=== PATIENT | male | born 1965 | race Caucasian/White ===

== ENCOUNTER 2016-10-10 14:22 | Emergency (ER) | payer MEDICARE, MEDICAID ==
[~2016-10-10] VITALS: Ht 176.5 cm; Wt 134.7 kg
[~2016-10-10 14:22] MED LIST: ASP81CT PO; CHOL10003 PO; FERR325C PO; LEVO75TA57 PO; LISI1TAB6 PO; METO-354 PO; MTF500T PO; NFPRILOC40 PO; SRTR100T PO; ZPR40C PO
[2016-10-10] MEDS ORDERED: LIDOCAINE/EPI 1%-1:100,000 (XYLOCAINE) 20ML INJ ONE (14:45)
--- NOTE | 2016-10-10 15:14 | ED Lower Extremity ---
General Chief Complaint: Laceration Stated Complaint: R LEG BLEEDING Nursing Triage Note: PT REPORTS CERAMIC DECORATIONS BREAKING AND CUTTING LEG. [facility]TA STAFF STATES UNABLE TO GET IT TO STOP BLEEDING. PT DENIES PAIN. BROUGHT IN BY , BUT ABLE TO TRANSFER TO BED WITHOUT ISSUE. Nursing Sepsis Screen: No Definite Risk Source: patient Exam Limitations: no limitations (high functioning MR) History of Present Illness Time seen by provider: 15:11 Initial Comments 51-year-old male patient presents to the emergency department with complaints of a laceration to the right knee. Patient states he fell onto a ceramic [place] cutting the right leg. Denies numbness, weakness. Denies hitting his head or loss of consciousness. Staff reports unable to get the laceration to quit bleeding. Location Injury Occurred: home Onset: just prior to arrival Pain/Injury Location: right knee Method of Injury: fell, incised Modifying Factors: Worse With Other (unable to stop the bleeding with compression.) Allergies and Home Medications Allergies Coded Allergies: No Known Drug Allergies (Unverified , 09/15/10) Home Medications Aspirin 81 Mg Chew 81 MG PO DAILY (Reported) Cholecalciferol 1,000 Unit Tablet 1,000 UNIT PO (Reported) Ferrous Sulfate 325 ( 65 )Mg Capsule.sa 325 ( PO (Reported) Hctz/Lisinopril 1 Each Tablet 1 EACH PO DAILY (Reported) Levothyroxine Sodium 75 Mcg Tablet 1 EACH PO DAILY (Reported) Metformin Hcl 500 Mg Tab 1,000 MG PO BID (Reported) Metoclopramide Hcl 10 Mg Tab 1 EACH PO QID PRN (Reported) Omeprazole 40 Mg Capsule.dr 40 MG PO HS (Reported) Sertraline Hcl 100 Mg Tablet 2 TAB PO DAILY (Reported) Ziprasidone 40 Mg Cap 40 MG PO BIDPC (Reported) Constitutional: no symptoms reported Respiratory: no symptoms reported Cardiovascular: no symptoms reported Musculoskeletal: No back pain, No joint pain, No joint swelling, No neck pain Skin: see HPI other (laceration rt knee) Psychiatric/Neurological: Denies Headache, Denies Numbness, Denies Paresthesia , Denies Tingling, Denies Weakness All Other Systems Reviewed Negative Unless Noted: Yes (Negative excepted noted.) Past Ggqwlct-Ddndzh-Klutfm Hx Patient Social History Alcohol Use: Denies Use Recreational Drug Use: No Smoking Status: Never a Smoker Recent Foreign Travel: No Contact w/Someone Who Travel: No Recent Infectious Disease Expo: No Recent Hopitalizations: No Physical Abuse Screen: No Sexual Abuse: No Immunizations Up To Date Tetanus Booster (TDap): Less than 5yrs (4 yrs ago.) Surgeries HX Surgeries: Yes (LEFT ANKLE) Surgeries: Orthopedic Respiratory Hx Respiratory Disorders: No Cardiovascular Hx Cardiac Disorders: Yes Cardiac Disorders: Hypertension Neurological Hx Neurological Disorders: No Reproductive System Hx Reproductive Disorders: No Sexually Transmitted Disease: No Genitourinary Hx Genitourinary Disorders: No Gastrointestinal Hx Gastrointestinal Disorders: No Musculoskeletal Hx Musculoskeletal Disorders: Yes Musculoskeletal Disorders: Arthritis Endocrine Hx Endocrine Disorders: Yes Endocrine Disorders: Hypothyroidsim HEENT HX ENT Disorders: No Psychosocial Hx Psychiatric Problems: Yes (iMPULSE CONTROL DISORDER NOS, MR) Behavioral Health Disorders: Depression Integumentary HX Skin/Integumentary Disorder: No Blood Transfusions Hx Blood Disorders: Yes (ANEMIA) Reviewed Nursing Assessment Reviewed/Agree w Nursing PMH: Yes Family Medical History Significant Family History: No Pertinent Family Hx Physical Exam Vital Signs Vital Sign - Last 12Hours 10/10/16 14:35 Temp 98.5 Pulse 75 Resp 18 B/P 132/80 Pulse Ox 99 O2 Delivery Room Air Capillary Refill : Less Than 3 Seconds General Appearance: WD/WN no apparent distress Cardiovascular: normal peripheral pulses no edema Legs: bilateral leg non-tender, bilateral leg normal range of motion, bilateral leg no evidence of injury, bilateral leg other (venous stasis changes bilaterally.) Knees: bilateral knee non-tender, left knee normal inspection, bilateral knee normal range of motion, left knee no evidence of injury, right knee other (4 cm linear laceration of the right anterior knee with mild hemorrhage.) Ankles: bilateral ankle non-tender, bilateral ankle normal range of motion, bilateral ankle no evidence of injury, bilateral ankle other (venous stasis changes bilaterally.) Feet: bilateral foot non-tender, bilateral foot normal range of motion, bilateral foot no evidence of injury, bilateral foot other (venous stasis changes of the BLE) Neurologic/Tendon: normal sensation normal motor functions normal tendon functions responds to pain no evidence tendon injury Neurologic/Psychiatric: no motor/sensory deficits alert normal mood/affect oriented x 3 Skin: warm/dry other (4 cm laceration rt anterior knee with mild hemorrhage.) Laceration Repair : Wound Location: Lower Extremities (rt anterior knee) Wound Length (cm): 4 Wound's Depth, Shape: superficial, linear Wound Explored: clean (wound explored. No foreign body.) Betadine Prep?: Yes (and scrubbed with chlorhexidine and sterile saline) Anesthesia: Lidocaine w/ Epi Suture: Ethlion Suture Size: 3-0 Other Closure Supply: Steri Strip 09/22", Mastisol Number of Sutures: 4 Sterile Dressing Applied?: Yes Progress blood loss minimal. Patient tolerated the procedure well. Progress/Results/Core Measures Results/Orders My Orders Orders-DEVIN MURPHY Lidocaine/Epi 1% 1:100,000 (Xylocaine /E (10/10/16 14:45) Vital Signs/I&O Vital Sign - Last 12Hours 10/10/16 14:35 Temp 98.5 Pulse 75 Resp 18 B/P 132/80 Pulse Ox 99 O2 Delivery Room Air Blood Pressure Mean: 97 Departure Communication Progress Notes patient seen, evaluated, and wound repair performed. Impression Impression: Primary Impression: Laceration of knee without complication Disposition: 01 HOME, SELF-CARE Condition: Improved Departure-Patient Inst. Decision time for Depature: 15:11 Referrals: [facility] (PCP/Family) Primary Care Physician Patient Instructions: Laceration Repair With Stitches (DC) Add. Discharge Instructions: All discharge instructions reviewed with patient and/or family. Voiced understanding. Medications as directed. Tylenol Extra Strength over-the- counter as directed for pain. Ibuprofen 800 mg by mouth every 8 hours as needed for pain. Elevate the right knee on pillows. Ice pack for 20 minute intervals 6 times daily for 3 days. Return to the emergency department in 12 days for suture removal. Follow-up with your family practitioner if needed. Return to the emergency department immediately for worsened pain, redness, drainage, fever, or any other concerns. DEVIN MURPHY Oct 10, 2016 15:14
[2016-10-10 15:56] VITALS: BP 138/80
== END 2016-10-10 15:56 | disposition home or self-care (01) ==
LOC: EDUNIT# 14:22 → ER 14:25
DX: S81.011A Laceration without foreign body, right knee, initial encounter (principal); W45.8XXA Other foreign body or object entering through skin, initial encounter; Y99.8 Other external cause status
CPT/HCPCS: 12020

== ENCOUNTER → 2018-10-13 | Outpatient (CLI) | payer MEDICARE, MEDICAID ==
--- NOTE | 2018-10-13 12:26 | Diagnostic Imaging Report ---
PROCEDURE: US Hepatic (Liver). TECHNIQUE: Multiple real-time grayscale images were obtained over the right upper quadrant in various projections. INDICATION: Elevated liver function tests. FINDINGS: Liver is enlarged at 23.3 cm. The liver does appear to be echogenic suggestive of hepatic steatosis. No discrete liver mass is seen. The gallbladder is surgically absent. No biliary duct dilatation is seen. Pancreas is poorly visualized due to patient body habitus. Right kidney is unremarkable. There is no ascites. IMPRESSION: Hepatic steatosis and hepatomegaly. No other significant abnormality is detected. Dictated by: Dictated on workstation # [id number]
== END ==
LOC: RAD 09:52
PROVIDERS: ATTEND Family Medicine
DX: K76.0 Fatty (change of) liver, not elsewhere classified (principal); R16.0 Hepatomegaly, not elsewhere classified; Z90.49 Acquired absence of other specified parts of digestive tract
CPT/HCPCS: 76705

== ENCOUNTER → 2019-05-17 | Outpatient (CLI) | payer MEDICARE, MEDICAID ==
[~2019-05-17] VITALS: Ht 175.3 cm; Wt 184.2 kg
[~2019-05-17] MED LIST changes: +REGADENOSON 0.4 MG/5 ML SYR (LEXISCAN) IV ONE
[2019-05-17] MEDS: CATHETER FLUSH 10 ML SYR IV PRN ×2 (07:28→09:08)
[2019-05-17 09:06] VITALS: BP 165/93
== END ==
LOC: CARD 07:08
PROVIDERS: ATTEND Internal Medicine Interventional Cardiology
DX: E11.9 Type 2 diabetes mellitus without complications (principal); I10 Essential (primary) hypertension; E78.49 Other hyperlipidemia; E66.01 Morbid (severe) obesity due to excess calories
CPT/HCPCS: 78452; 93017; 93306

== ENCOUNTER → 2019-07-11 | Outpatient (CLI) | payer MEDICARE, MEDICAID ==
[~2019-07-11] MED LIST changes: -REGADENOSON 0.4 MG/5 ML SYR (LEXISCAN) IV ONE; +RT-ALBUTEROL SULF 2.5 MG/3 ML PRE-MIX VIAL INH ONE
== END ==
LOC: RT 10:22
PROVIDERS: ATTEND Nurse Practitioner Family
DX: J30.9 Allergic rhinitis, unspecified (principal); G47.33 Obstructive sleep apnea (adult) (pediatric); E66.01 Morbid (severe) obesity due to excess calories
CPT/HCPCS: 94060; 94729

== ENCOUNTER 2019-08-02 07:02 | Day surgery (SDC) | payer MEDICARE, MEDICAID ==
[2019-08-02] VITALS (10 sets, daily range): BP systolic 133–167; BP diastolic 84–101
[~2019-08-02] VITALS: Ht 176.5 cm; Wt 182.0 kg
[~2019-08-02 07:02] MED LIST changes: -RT-ALBUTEROL SULF 2.5 MG/3 ML PRE-MIX VIAL INH ONE
[2019-08-02] MEDS ORDERED: LIDOCAINE 1% INJ 20 ML 20 ML VIAL ONE (07:04)
[2019-08-02] MEDS ORDERED: NS IV 1000 ML 1,000 ML ONE (07:04)
[2019-08-02] MEDS ORDERED: HEParin (CATH LAB) 2,000 ML IV ONE (07:04)
[2019-08-02] MEDS ORDERED: NS IV 1000 ML 1,000 ML IV SCH ×2 (07:15→09:54)
[2019-08-02] MEDS ORDERED: LOPE2TAB34 PO ×2 (07:48)
[2019-08-02] MEDS ORDERED: ZPR40C PO (07:48)
[2019-08-02] MEDS ORDERED: MAGN400O7 PO (07:48)
[2019-08-02] MEDS ORDERED: GUAI5SYR PO (07:48)
[2019-08-02] MEDS ORDERED: FLUT9.9S NS (07:48)
[2019-08-02] MEDS ORDERED: PRAV10TA PO (07:48)
[2019-08-02] MEDS ORDERED: METF-399 PO (07:48)
[2019-08-02] MEDS ORDERED: MENT5LOZ3 MM (07:48)
[2019-08-02] MEDS ORDERED: LISI10TA2 PO (07:48)
[2019-08-02] MEDS ORDERED: CALC1TAB29 PO (07:48)
[2019-08-02] MEDS ORDERED: DIPH25TA31 PO (07:48)
[2019-08-02] MEDS ORDERED: LEVO75TA PO (07:48)
[2019-08-02] MEDS ORDERED: ASPI-999 PO (07:48)
[2019-08-02] MEDS ORDERED: FERR-84 PO (07:48)
[2019-08-02] MEDS ORDERED: CLON0.5T13 PO (07:48)
[2019-08-02] MEDS ORDERED: NPB.9O TP (07:56)
[2019-08-02] MEDS ORDERED: CALC500T64 PO (07:56)
[2019-08-02] MEDS ORDERED: SERT50TA9 PO (07:56)
[2019-08-02] MEDS ORDERED: TETR15DR74 OU (07:56)
[2019-08-02] MEDS ORDERED: ACET325T49 PO (07:56)
[2019-08-02] MEDS ORDERED: LISI-594 PO (07:56)
[2019-08-02] MEDS ORDERED: HYDR28.3 TP (08:05)
--- NOTE | 2019-08-02 08:20 | NUR ---
MED REC WAS PUT IN FROM THE ORDER SUMMARY REPORT FROM [facility]. I DID FOLLOW UP ON THE LISINOPRIL, THERE WAS FOR 10MG (START DATE 05-29-2019) AND 5 MG (START DATE 04-18-2019) SHOWING ON THE ORDER SUMMARY. I CALLED [facility] AND THEY ONLY SHOWED 10MG. I THEN CALLED DR. RUBIO OFFICE TO DOUBLE CHECK AND WAS TOLD ON 05-29-2019 THE ORDER WAS CHANGED TO DC THE 5MG AND START THE 10MG. THEREFORE ONLY THE 10MG IS ON THE MED REC AND I LET HIS CAREGIVER KNOW THAT THE ENTRY FOR THE 5 MG SHOULD BE TAKEN OFF THE ORDER SUMMARY REPORT. HE AGREED AND SAID THEY WOULD TAKE CARE OF IT.
--- NOTE | 2019-08-02 08:21 | Anesthesia-Procedure Note ---
Procedures/Interventions Procedure Start/Stop/Diagnosis Date of Procedure: Aug 02, 2019 Start Time: 07:55 Referring Physician: yamile Stop Time: 08:10 Central Line/IV Access IV : Location: Left Site: Hand IV Catheter Type: Peripheral IV IV Catheter Gauge: 22 Procedure Conclusion Called by cathode ray tube salvage processor staff for difficult IV. Placed by KAREN Terry. LATANYA VICK CRNA Aug 02, 2019 08:21 POS
[2019-08-02 08:23] LABS: HEMOGLOBIN 12.8 G/DL (13.3-17.7); MEAN PLATELET VOLUME 10.4 FL (7.4-10.4); RED CELL DISTRIBUTION WIDTH 13.9 % (10.0-14.5); WHITE BLOOD COUNT 10.1 10^3/uL (4.3-11.0)
[2019-08-02 08:32] LABS: INR 0.9 (0.8-1.4); PROTHROMBIN TIME PATIENT 12.2 SEC (12.2-14.7)
[2019-08-02 08:42] LABS: ALANINE AMINOTRANSFERASE 30 U/L (0-55); ALBUMIN 4.2 GM/DL (3.2-4.5); ALKALINE PHOSPHATASE 83 U/L (40-136); BILIRUBIN,TOTAL 0.4 MG/DL (0.1-1.0); BUN/CREATININE RATIO 21; CALCIUM 9.3 MG/DL (8.5-10.1); CARBON DIOXIDE 26 MMOL/L (21-32); CHLORIDE 100 MMOL/L (98-107); CREATININE SERUM 1.24 MG/DL (0.60-1.30); GFR ESTIMATED > 60; GLUCOSE 158 MG/DL (70-105); POTASSIUM 5.1 MMOL/L (3.6-5.0); SODIUM 138 MMOL/L (135-145); TOTAL PROTEIN 7.8 GM/DL (6.4-8.2)
[2019-08-02] MEDS ORDERED: HEParin 1000 UNIT/ML (10ML VIAL) FOR BOLUS ONE (08:56)
[2019-08-02] MEDS ORDERED: fentaNYL INJECTION 100 MCG/2 ML AMP ONE (08:56)
[2019-08-02] MEDS ORDERED: VERAPAMIL 5 MG/2 ML (CALAN) VIAL IV ONE (08:56)
[2019-08-02] MEDS ORDERED: MIDAZOLAM 5 MG/5 ML (VERSED) VIAL ONE (08:56)
[2019-08-02] MEDS ORDERED: NITRO DRIP 25000 MCG/D5W 250 ML IV ONE (08:57)
--- NOTE | 2019-08-02 09:07 | Cardiac Procedure Note-CS/ASA ---
Pre-Procedure Note Pre-Op Procedure Note H&P Reviewed The H&P was reviewed, patient examined and no changes noted. Date H&P Reviewed: Aug 02, 2019 Time H&P Reviewed: 09:07 Conscious Sedation Pre-Proced Time 09:07 ASA Score 3 For ASA 3 and 4: Consider anesthesia and medical clearance. Also, for patients with a history of failed moderate sedation consider anesthesia. Airway Lungs Heart ASA score ASA 1: a normal healthy patient ASA 2: a patient with a mild systemic disease (mid diabetes, controlled hypertension, obesity ASA 3: a patient with a severe systemic disease that limits activity (angina, COPD, prior Myocardial infarction) ASA 4: a patient with an incapacitating disease that is a constant threat to life (CHF, renal failure) ASA 5: a moribund patient not expected to survive 24 hrs. (ruptured aneurysm) ASA 6: a declared brain- patient whose organs are being harvested. For emergent operations, add the letter E after the classification Mallampati Classification Grade 1 Sedation Plan Analgesia, Amnesia, Plan communicated to team members, Discussed options with patient/fam, Discussed risks with patient/fam The patient is an appropriate candidate to undergo the planned procedure, sedation, and anesthesia. The patient immediately re-assessed prior to indication. Barrett SEGOVIA MD Aug 02, 2019 9:07 am POS
--- NOTE | 2019-08-02 09:54 | Coronary Angiography Report ---
Coronary Angiography Report DATE OF PROCEDURE: 08/02/19 INDICATION: Shortness of breath, abnormal nuclear stress test. PREOPERATIVE DIAGNOSIS: Shortness of breath, abnormal nuclear stress test. POSTOPERATIVE DIAGNOSIS: Patent epicardial coronary arteries. HISTORY: This is a 54-year-old gentleman with history of diabetes, hypertension and hyperlipidemia. He complains of shortness of breath. Nuclear stress test showed evidence of possible anterior ischemia. Therefore, the patient was scheduled for coronary angiography. PROCEDURES PERFORMED: 1.Coronary angiography. 2.Left heart catheterization. COMPLICATIONS: None. SPECIMENS: None. ESTIMATED BLOOD LOSS: 10 mL ANESTHESIA: Conscious sedation ANTICOAGULATION: IV heparin CONTRAST: 52 mL. FLUOROSCOPY: 1.9 minutes. FLOUROSCOPY DOSE: 708 mgy. PROCEDURE DETAILS: The patient is a 54 male and was brought to the laboratory technical specialist after informed consent was taken. All the risks and complications were explained in detail; this included the risk of bleeding, vascular damage, stroke, AK and even . The patient was draped and prepped in the usual sterile fashion. Access was gained in the right radial artery with a 6 Bulgarian sheath. Coronary angiography and left heart catheterization was performed with the [place] catheter. FINDINGS: 1.Left main: Patent. 2.LAD: Patent. 3.Left circumflex artery: Patent. 4.RCA: Patent. 5.Left heart catheterization: LV pressure 145/22 mmHg. LVEDP 34 mmHg. Aortic pressure 142/95 mmHg. Normal LV function with no wall motion abnormalities. No gradient across the aortic valve. CONCLUSIONS: Patent epicardial coronary arteries. Continue primary prevention measures. Elevated LVEDP suggest diastolic dysfunction. Almaz Gallagher MD, FACP, FACC, [facility] Interventional Cardiology Barrett GALLAGHER MD Aug 02, 2019 9:53 am POS
--- NOTE | 2019-08-02 09:56 | Discharge Inst-Post CATH ---
Discharge Inst-CATH/EP Problems Reviewed?: Yes Final Diagnosis Patent epicardial coronary arteries, diastolic dysfunction Post Cardiac Cath/EP D/C Inst Follow Up/Plan Follow-up with Dr. Gallagher in 4 weeks. <b>CARDIAC CATH/EP PROCEDURE DISCHARGE INSTRUCTIONS</b> ACTIVITY * Go Home directly and rest. * Limit activity of the leg (or wrist if it was used) for 7 days including aerobics, swimming, jogging, bicycling, etc. * Restrict stair-climbing for 7 days if possible, if not, climb up with your non-cath leg, then bring together on the same step. * Avoid lifting, pushing, pulling or excessive movement of the affected extremity for 7 days. * Customary sexual activity may be resumed after 2 days-use caution not to use a position that strains or causes pain to the affected extremity. * No driving for 24 hours. * NO SMOKING. * Avoid straining for bowel movements for 7 days. * Gentle walking on level ground is allowed. * Returning to work will depend on the type of procedure and the results. Your doctor will discuss this with you. CALL YOUR DOCTOR FOR ANY OF THE FOLLOWING: *If bleeding from the puncture site occurs- Apply gentle pressure to site with clean cloth and call your doctor or EMS. * If a knot or lump forms under the skin, increases in size, or causes pain. * If bruising appears to be worsening or moving further down your leg instead of disappearing. * Temperature above 101 F. CARE OF YOUR GROIN INCISION; * Bruising or purple discoloration of the skin near the puncture site is common. * You may shower only, no bathtub bathing for 5 days. Be careful to avoid slipping as your leg may feel stiff. * If a closure device was used on your femoral artery, please see the attached guide regarding care of the device and your leg. * Leave dressing on FOR 24 hours. CARE OF YOUR WRIST INCISION; * Bruising or purple discoloration of the skin near the puncture site is common. * You may shower. * DO NOT submerge wrist. * Leave dressing on FOR 24 hours. Barrett GALLAGHER MD Aug 02, 2019 9:56 am POS
--- NOTE | 2019-08-02 09:59 | Cardiology Discharge Summary ---
Diagnosis/Chief Complaint Date of Admission 08/02/2019 Date of Discharge 08/02/2019 Admission Diagnosis Shortness of breath, abnormal nuclear stress test. Final/Discharge Diagnosis Patent epicardial coronary arteries, diastolic dysfunction Chief Complaint/HPI Chief Complaint/HPI This is a 54-year-old gentleman with history of diabetes, hypertension and hyperlipidemia. He has history of shortness of breath. Stress test showed possible anterior ischemia. Coronary angiography is recommended. Discharge Summary Procedures Coronary angiography shows patent epicardial coronary arteries. Elevated LVEDP suggest diastolic dysfunction. Discharge Physical Examination Normal cardiac vascular examination. Hospital Course Was the Problem List Reviewed?: Yes Unremarkable. Pending Labs Laboratory Tests 08/02/19 08:10: White Blood Count 10.1, Red Blood Count 4.41, Hemoglobin 12.8, Hematocrit 43, Mean Corpuscular Volume 96, Mean Corpuscular Hemoglobin 29, Mean Corpuscular Hemoglobin Concent 30, Red Cell Distribution Width 13.9, Platelet Count 192, Mean Platelet Volume 10.4, Prothrombin Time 12.2, INR Comment 0.9, Activated Partial Thromboplast Time 27, Sodium Level 138, Potassium Level 5.1, Chloride Level 100, Carbon Dioxide Level 26, Anion Gap 12, Blood Urea Nitrogen 26, Creatinine 1.24, Estimat Glomerular Filtration Rate > 60, BUN/Creatinine Ratio 21, Glucose Level 158, Calcium Level 9.3, Corrected Calcium 9.1, Total Bilirubin 0.4, Aspartate Amino Transf (AST/SGOT) 28, Alanine Aminotransferase (ALT/SGPT) 30, Alkaline Phosphatase 83, Total Protein 7.8, Albumin 4.2 Discussion & Recommendations Discussion Patient will continue same medications. Follow-up in 4 weeks. Discharge instructions will be provided. Follow up appt.: Dr. Gallagher in 4 weeks. Dicharge Diet: Cardiac Diet Activity as Tolerated: Yes Home Medications Reviewed patient Home Medication Reconciliation performed by pharmacy medication reconciliations color laboratory technician and/or nursing. Patients Allergies have been reviewed. Discharge Home Medications: Reviewed and agree with Discharge Medication list on patient's Discharge Instruction sheet Condition at discharge Stable. Instructions to patient/family Follow-up with Dr. Gallagher in 4 weeks. Barrett GALLAGHER MD Aug 02, 2019 9:58 am POS
[2019-08-02] MEDS ORDERED: PATIENT MAY USE OWN MEDS, ALL PO SCH (10:00)
--- NOTE | 2019-08-02 11:03 | History & Physicial-Cardiolgy ---
HPI-Cardiology Cardiology Consultation: Date of Consultation 08/02/19 Date of Admission Attending Physician Barrett Gallagher MD Admitting Physician Liz Jimenez MD Consulting Physician Barrett GALLAGHER MD HPI: Time Seen by a Provider: 09:00 Chief Complaint: Shortness of breath This is a 54-year-old gentleman with history of diabetes, hypertension and hyperlipidemia. He has history of shortness of breath. Stress test showed possible anterior ischemia. Coronary angiography is recommended. Review of Systems-Cardiology Review of Systems Constitutional: As described under HPI; No As described under HPI, No no symptoms reported, No chills, No fever, No lightheadedness Eyes: No As described under HPI, No no symptoms reported, No blindness, No blurred vision, No contact lenses, No drainage, No decreased acuity, No foreign body sensation, No pain, No vision change Ears/Nose/Throat: No As described under HPI, No no symptoms reported, No chronic hearing loss, No ear discharge, No ear pain, No nasal drainage, No ulcerations Respiratory: No no symptoms reported; As described under HPI; No As described under HPI, No cough, No orthopnea; shortness of breath; No SOB with excertion Cardiovascular: No no symptoms reported; As described under HPI; No As described under HPI, No edema, No irregular heart rate, No lightheadedness, No palpitations Gastrointestinal: No no symptoms reported, No As described under HPI, No abdomen distended, No abdominal pain, No blood streaked bowels, No constipation, No diarrhea, No nausea, No vomiting, No stool coloration changes Genitourinary: No As described under HPI, No burning, No dysuria, No discharge, No frequency, No flank pain, No hematuria, No urgency Skin: No rash, No skin related problems, No ulcerations Psychiatric/Neurological: No anxiety, No depression, No seizure, No focal weakness, No syncope Hematologic: No bleeding abnormalities PTC-Clrmsm-Zgikqu Hx Patient Social History Alcohol Use: Denies Use Recreational Drug Use: No Smoking Status: Never a Smoker Recent Foreign Travel: No Recent Infectious Disease Expo: No Immunizations Up To Date Tetanus Booster (TDap): Less than 5yrs Past Medical History PMH As described under Assessment. Allergies and Home Medications Allergies Coded Allergies: No Known Drug Allergies (Unverified , 09/15/10) Home Medications Acetaminophen 325 Mg Tablet, 650 MG PO Q6H PRN for PAIN-MILD (1-3) OR TEMPATURE, (Reported) Aspirin 81 Mg Tab.chew, 81 MG PO DAILY, (Reported) GIVE WITH FOOD Calcium Carbonate 500 Mg Tablet, 1,000 MG PO Q2H PRN for HEARTBURN, (Reported) Calcium Carbonate/Vitamin D3 1 Each Tablet, 2 EACH PO DAILY, (Reported) Clonazepam 0.5 Mg Tablet, 0.5 MG PO Q12H PRN for ANXIETY, (Reported) Diphenhydramine HCl 25 Mg Tablet, 25 MG PO Q6H PRN for ALLERGIES, (Reported) Ferrous Sulfate 325 Mg Tablet, 325 MG PO HS, (Reported) Fluticasone Propionate 9.9 Ml [place].susp, 2 SPRAY NS DAILY PRN for CONGESTION, (Reported) Guaifenesin/Dextromethorphan 5 Ml Syrup, 10 ML PO Q4H PRN for COUGH, (Reported) Hydrocortisone 28.35 Gm Cream..g., 1 APPLIC TP Q8H PRN for RASH, (Reported) Levothyroxine Sodium 75 Mcg Tablet, 75 MCG PO DAILY, (Reported) Lisinopril 10 Mg Tablet, 10 MG PO DAILY, (Reported) Loperamide HCl 2 Mg Tablet, 4 MG PO DAILY PRN for DIARRHEA, (Reported) TAKE 2 TABS AFTER EACH 1ST INITIAL STOOL THHEN 1 TAB FOLLOWING EACH SUBSEQUENT STOOL, DO NOT EXCEED 4 TABS IN 24 HRS Loperamide HCl 2 Mg Tablet, 2 MG PO PRN PRN for DIARRHEA, (Reported) TAKE 2 TABS AFTER EACH 1ST INITIAL STOOL THHEN 1 TAB FOLLOWING EACH SUBSEQUENT STOOL, DO NOT EXCEED 4 TABS IN 24 HRS Magnesium Hydroxide 400 Mg/5 Ml Oral.susp, 30 ML PO Q12H PRN for CONSTIPATION- 7TH LINE, (Reported) Menthol 5 Mg Lozenge, 5 MG MM EVERY HOUR PRN for COUGH, (Reported) Metformin HCl 1,000 Mg Tablet, 1,000 MG PO HS, (Reported) Neomycin/Polymyxin/Bacitracin 0.9 Gm Oint, 1 APPLIC TP DAILY PRN for SKIN CONDITION, (Reported) APPLY TO MINOR CUTS OR ABRASIONS EVERY 24 HOURS NEEDED FOR SKIN CONDITION Pravastatin Sodium 10 Mg Tablet, 10 MG PO HS, (Reported) Sertraline HCl 50 Mg Tablet, 50 MG PO DAILY, (Reported) Tetrahydrozoline HCl 15 Ml Drops, 2 DROPS OU Q6H PRN for DRY EYES, (Reported) Ziprasidone 40 Mg Cap, 40 MG PO BID, (Reported) Patient Home Medication List Home Medication List Reviewed: Yes Physical Exam-Cardiology Physical Exam Vital Signs/I&O 08/02/19 07:15 Temp 37.1 Pulse 87 Resp 18 B/P (MAP) 167/101 (123) Pulse Ox 95 O2 Delivery Room Air Capillary Refill : Constitutional: appears stated age, AAO x 3; No apparent distress; well- developed, well-nourished HEENT: PERRL; No discharge; hearing is well preserved, oral hygience is good; No ulceration, No xanthelasmas are seen Neck: No carotid bruit; carotid pulses are 2 + bilaterally Respiratory: chest is bilaterally symmetric, lungs clear to auscultation Cardiovascular: regular rate-rhythm, S1 and S2 Gastrointestinal: soft, audible bowel sounds; No spleenomegaly Rectal: deferred Extremities: normal range of motion, non-tender, normal inspection; No clubbing, No cyanosis; no lower extremity edema bilateral; No significant edema Neurologic/Psychiatric: no motor/sensory deficits, alert, normal mood/affect, oriented x 3, power is 5/5 both on sides Skin: normal color, warm/dry; No rash, No ulcerations Data Review Labs Laboratory Tests 08/02/19 08:10: White Blood Count 10.1, Red Blood Count 4.41, Hemoglobin 12.8L, Hematocrit 43, Mean Corpuscular Volume 96, Mean Corpuscular Hemoglobin 29, Mean Corpuscular Hemoglobin Concent 30L, Red Cell Distribution Width 13.9, Platelet Count 192, Mean Platelet Volume 10.4, Prothrombin Time 12.2, INR Comment 0.9, Activated Partial Thromboplast Time 27, Sodium Level 138, Potassium Level 5.1H, Chloride Level 100, Carbon Dioxide Level 26, Anion Gap 12, Blood Urea Nitrogen 26H, Creatinine 1.24, Estimat Glomerular Filtration Rate > 60, BUN/Creatinine Ratio 21, Glucose Level 158H, Calcium Level 9.3, Corrected Calcium 9.1, Total Bilirubin 0.4, Aspartate Amino Transf (AST/SGOT) 28, Alanine Aminotransferase (ALT/SGPT) 30, Alkaline Phosphatase 83, Total Protein 7.8, Albumin 4.2 A/P-Cardiology Assessment/Admission Diagnosis Shortness of breath, abnormal nuclear stress test. Admission Status: Observation Plan Coronary angiography is recommended. Barrett GALLAGHER MD Aug 02, 2019 11:03 am POS
== END 2019-08-02 13:20 | disposition home or self-care (01) ==
LOC: CATH 07:02 → SDC 10:08 → CATH 13:20
PROVIDERS: ATTEND Internal Medicine Interventional Cardiology
DX: R94.39 Abnormal result of other cardiovascular function study (principal); E11.9 Type 2 diabetes mellitus without complications; I10 Essential (primary) hypertension; E78.5 Hyperlipidemia, unspecified; Z79.82 Long term (current) use of aspirin; Z79.51 Long term (current) use of inhaled steroids; Z79.899 Other long term (current) drug therapy
CPT/HCPCS: 36415; 80053; 85027; 85610; 85730; 87081; 93458

== ENCOUNTER → 2020-02-29 | Outpatient (CLI) | payer MEDICARE, MEDICAID ==
[~2020-02-29] MED LIST changes: +ACET325T49 PO; +ASPI-999 PO; +CALC1TAB29 PO; +CALC500T64 PO; +CLON0.5T4 PO; +DIPH25TA31 PO; +FERR-84 PO; +FLUT9.9S NS; +GUAI5SYR PO; +HYDR28.3 TP; +LEVO75TA PO; +LISI-594 PO; +LISI10TA2 PO; +LOPE2TAB34 PO; +MAGN400O7 PO; +MENT5LOZ3 MM; +METF-399 PO; +NPB.9O TP; +PRAV10TA PO; +SERT50TA9 PO; +TETR15DR74 OU
--- NOTE | 2020-02-29 08:53 | Diagnostic Imaging Report ---
PROCEDURE: US Hepatic (Liver). TECHNIQUE: Multiple real-time grayscale images were obtained over the right upper quadrant in various projections. INDICATION: Hepatic steatosis. FINDINGS: The liver is enlarged at 22.6 cm. There is diffuse increased echogenicity throughout the liver consistent with hepatic steatosis. No discrete liver mass is detected. The portal vein is patent and shows normal direction of flow. Gallbladder is nonvisualized. This could be surgically absent. Clinical correlation is recommended. No biliary ductal dilatation is seen. The visualized pancreas is unremarkable. Right kidney is without calculi or hydronephrosis. There is no ascites. IMPRESSION: 1. Hepatomegaly and hepatic steatosis. 2. Nonvisualized gallbladder, perhaps surgically absent. Clinical correlation is recommended. Dictated by: Dictated on workstation # [id number]
== END ==
LOC: RAD 08:06
PROVIDERS: ATTEND Family Medicine
DX: K76.0 Fatty (change of) liver, not elsewhere classified (principal)
CPT/HCPCS: 76705

== ENCOUNTER → 2022-04-12 | Outpatient (CLI) | payer MEDICARE, MEDICAID ==
[~2022-04-12] MED LIST changes: -LISI10TA2 PO; +LISI10TA25 PO; -MENT5LOZ3 MM; +MENT5LOZ4 MM; +SERT-413 PO; -SERT50TA9 PO
--- NOTE | 2022-04-12 12:01 | Diagnostic Imaging Report ---
INDICATION: Pretibial subcutaneous nodule. FINDINGS: Ultrasound of the pretibial space of the left lower leg shows a 0.7 x 0.9 x 0.4 cm hypoechoic lesion with a relatively thick wall and a sonolucent center that appears liquefied. IMPRESSION: Pathologic fluid collection in the subcutaneous soft tissues of the left lower leg. This could be a resolving hematoma. Other considerations include foreign body granulation and/or abscess. Dictated by: Dictated on workstation # [id number]
== END ==
LOC: RAD 09:53
PROVIDERS: ATTEND Nurse Practitioner Family
DX: R22.42 Localized swelling, mass and lump, left lower limb (principal)
CPT/HCPCS: 76881